=== PATIENT | male | born 1970 | race Caucasian/White ===

== ENCOUNTER 2023-08-07 16:05 | Emergency (ER) | payer OTHER ==
[2023-08-07] MEDS ORDERED: Lidocaine 1% w/Epinephrine 1:200K 30 ML VIAL ONE (17:58)
[2023-08-07] MEDS ORDERED: Boostrix 0.5 ML (Tdap) VIAL (>/=7 yrs of age) ONE (17:58)
== END 2023-08-07 19:12 | disposition home or self-care (01) ==
LOC: CSHERS 16:05
DX: S01.81XA Laceration without foreign body of other part of head, initial encounter (principal); W22.8XXA Striking against or struck by other objects, initial encounter; Z23 Encounter for immunization
CPT/HCPCS: 12011; 90471; 90715

== ENCOUNTER 2023-09-19 13:15 | Inpatient (IN) | payer BC ==
[2023-09-19] MEDS ORDERED: Aspirin 325 MG TAB ONE (13:48)
[2023-09-19 14:18] LABS: #Eosinphils 0.1 10x3/uL (0.0-0.5); #Neutrophils 6.4 10x3/uL (1.5-8.4); %Basophils 0.3 % (0.0-2.0); %Eosinophils 1.1 % (0.0-6.0); %Lymphocytes 23.6 % (18.0-47.0); %Monocytes 9.6 % (0.0-10.0); Hematocrit 39.3 % (38.8-50.0); Hemoglobin 12.9 g/dL (13.5-17.5); Mean Corpuscular HGB CONC 32.8 g/dL (32.0-36.0); Mean Corpuscular Hemoglobin 25.9 pg (27.0-33.0); Mean Corpuscular Volume 78.8 fl (81.2-95.1); Mean Platelet Volume 10.3 fl (7.4-10.4); Platelet Count 277 10x3/uL (150-450); RBC Distribution Width 15.9 % (11.5-14.5); Red Blood Cell (RBC) Count 4.99 10x6/uL (4.32-5.72); White Blood Cell (WBC) Count 9.9 10x3/uL (3.5-10.5)
[2023-09-19] MEDS ORDERED: Nitroglycerin 0.4 MG TAB 1 EACH ONE (14:33)
[2023-09-19 16:28] LABS: ALT (SGPT) 25 U/L (8-55); AST (SGOT) 23 U/L (5-34); Albumin 4.1 g/dL (3.5-5.0); Alkaline Phosphatase 95 U/L (40-110); Anion Gap 14 mmol/L (10-20); BUN (Urea Nitrogen) 14 mg/dL (8.4-25.7); Bilirubin, Total 0.5 mg/dL (0.2-1.2); Calc. Creatinine Clearance 0 mL/min (70-130); Calcium 9.1 mg/dL (7.8-10.44); Carbon Dioxide 21 mmol/L (22-29); Chloride 110 mmol/L (98-107); Estimated GFR 102; Globulin 2.8 g/dL (2.4-3.5); Glucose 100 mg/dL (70-105); Potassium 3.8 mmol/L (3.5-5.1); Protein, Total 6.9 g/dL (6.0-8.3); Sodium 141 mmol/L (136-145)
[2023-09-19 16:58] LABS: Troponin I 0.218 ng/mL (< 0.028)
[2023-09-19] MEDS ORDERED: Acetaminophen 325 MG TAB PO PRN (18:31)
[2023-09-19] MEDS ORDERED: Ondansetron PF 4 MG/2 ML Vial IVP PRN (18:31)
[2023-09-19] MEDS ORDERED: HYDROcodone/Acetaminophen 5/325 mg Tablet PO PRN (18:31)
[2023-09-19] MEDS ORDERED: Nitroglycerin 0.4 MG TAB (25 Tab Bottle) SL PRN (18:32)
[2023-09-19 18:43] LABS: Troponin I 0.204 ng/mL (< 0.028)
[2023-09-19 19:56] VITALS: BMI 35.9
[2023-09-19] MEDS: Famotidine 20 MG TAB PO SCH (21:15)
[2023-09-19 21:38] LABS: Troponin I 0.219 ng/mL (< 0.028)
[2023-09-19] MEDS: Zolpidem Tartrate 5 MG TAB PO PRN (22:12)
[2023-09-20 04:53] LABS: #Eosinphils 0.3 10x3/uL (0.0-0.5); #Monocytes 0.8 10x3/uL (0.0-1.1); #Neutrophils 2.8 10x3/uL (1.5-8.4); %Basophils 0.3 % (0.0-2.0); %Eosinophils 4.4 % (0.0-6.0); %Lymphocytes 41.5 % (18.0-47.0); %Neutrophils 41.5 % (40.0-75.0); Hematocrit 37.7 % (38.8-50.0); Hemoglobin 12.5 g/dL (13.5-17.5); Mean Corpuscular HGB CONC 33.2 g/dL (32.0-36.0); Mean Corpuscular Hemoglobin 26.2 pg (27.0-33.0); Mean Corpuscular Volume 78.9 fl (81.2-95.1); Mean Platelet Volume 10.2 fl (7.4-10.4); Platelet Count 252 10x3/uL (150-450); RBC Distribution Width 15.9 % (11.5-14.5); Red Blood Cell (RBC) Count 4.78 10x6/uL (4.32-5.72); White Blood Cell (WBC) Count 6.8 10x3/uL (3.5-10.5)
[2023-09-20 05:22] LABS: Anion Gap 13 mmol/L (10-20); BUN (Urea Nitrogen) 14 mg/dL (8.4-25.7); Calc. Creatinine Clearance 148 mL/min (70-130); Calcium 8.3 mg/dL (7.8-10.44); Carbon Dioxide 23 mmol/L (22-29); Cardiac Risk 3.5 (Less than 4.5); Chloride 108 mmol/L (98-107); Estimated GFR 105; Glucose 119 mg/dL (70-105); HDL Cholesterol 39 mg/dL (>60 Neg Risk); LDL Cholesterol, Calculated 78 mg/dL; Potassium 3.7 mmol/L (3.5-5.1); Sodium 140 mmol/L (136-145); Triglycerides 104 mg/dL (Less than 150)
[2023-09-20 05:24] LABS: Cholesterol 138 mg/dl (< 200 Desired)
[2023-09-20] MEDS: Aspirin Chewable 81 MG TAB PO SCH (07:40)
[2023-09-20] MEDS: Famotidine 20 MG TAB PO SCH ×2 (07:40→21:06)
[2023-09-20] MEDS ORDERED: FLU VACC QS2023-24(6MOS UP)/PF 60 MCG/0.5 ML SYRINGE IM ONE (09:00)
[2023-09-20] MEDS ORDERED: Losartan 25 MG TAB PO SCH (09:00)
[2023-09-20] MEDS ORDERED: Communication Order-Pharmacy FS SCH (09:30)
[2023-09-20] MEDS ORDERED: Iopamidol 300 61% 100 ML VIAL FS ONE (09:31)
[2023-09-20] MEDS ORDERED: Lidocaine 1% (PF) 30 ML VIAL ONE (09:38)
[2023-09-20] MEDS ORDERED: Nitroglycerin 50 MG/250 ML BOT 250 ML ONE (09:38)
[2023-09-20] MEDS ORDERED: Heparin 10,000 UNITS/ 10 ML VIAL ONE (09:38)
[2023-09-20] MEDS ORDERED: Adenosine 6 MG/2 ML VIAL ONE (09:39)
[2023-09-20] MEDS ORDERED: Lidocaine 4% PF 5 ML AMP ONE (09:40)
[2023-09-20] MEDS ORDERED: Verapamil 5 MG/2 ML VIAL ONE (09:40)
[2023-09-20] MEDS ORDERED: Midazolam HCl 2 mg/2 ml Vial ONE (09:50)
[2023-09-20] MEDS ORDERED: fentaNYL 50 mcg/mL 1 mL Vial ONE (09:50)
[2023-09-20] MEDS ORDERED: Acetaminophen/Codeine 30-300mg Tablet PO PRN ×2 (10:58)
[2023-09-20] MEDS ORDERED: Sodium Chloride 0.9% 200 ML IV PRN (10:58)
[2023-09-20] MEDS ORDERED: Nitroglycerin 0.4 MG TAB (25 Tab Bottle) SL PRN (10:58)
[2023-09-20] MEDS ORDERED: NIFEdipine XL 30 MG ER.TAB PO SCH (12:00)
[2023-09-20 16:08] LABS: Free T4 (Free Thyroxine) 1.31 ng/dL (0.70-1.48)
[2023-09-20] MEDS: Zolpidem Tartrate 5 MG TAB PO PRN (21:06)
[2023-09-21] MEDS: Aspirin Chewable 81 MG TAB PO SCH (08:09)
[2023-09-21] MEDS: Famotidine 20 MG TAB PO SCH (08:09)
[2023-09-21] MEDS ORDERED: NIFEdipine XL 30 MG ER.TAB PO SCH (09:00)
[2023-09-21 11:59] VITALS: BP 123/85; TEMP 97.7
== END 2023-09-21 14:16 | disposition home or self-care (01) | DRG 282 ==
LOC: SUATTDRO 13:15 → CSHERS 13:15 → CSHTELE 17:04
PROVIDERS: ADMIT Internal Medicine; ATTEND Hospitalist
PROC: 4A023N7 Measurement of Cardiac Sampling and Pressure, Left Heart, Percutaneous Approach (ICD-10-PCS; principal; 2023-09-20)
PROC: B2151ZZ Fluoroscopy of Left Heart using Low Osmolar Contrast (ICD-10-PCS; 2023-09-20)
PROC: B2111ZZ Fluoroscopy of Multiple Coronary Arteries using Low Osmolar Contrast (ICD-10-PCS; 2023-09-20)
DX: I21.4 Non-ST elevation (NSTEMI) myocardial infarction (principal); Z88.1 Allergy status to other antibiotic agents; Z88.8 Allergy status to other drugs, medicaments and biological substances; I10 Essential (primary) hypertension; M19.90 Unspecified osteoarthritis, unspecified site; Z98.890 Other specified postprocedural states; G47.33 Obstructive sleep apnea (adult) (pediatric); Z96.653 Presence of artificial knee joint, bilateral; Z82.49 Family history of ischemic heart disease and other diseases of the circulatory system; Z96.642 Presence of left artificial hip joint; Z79.82 Long term (current) use of aspirin; Z79.899 Other long term (current) drug therapy; I20.1 Angina pectoris with documented spasm; E05.90 Thyrotoxicosis, unspecified without thyrotoxic crisis or storm
CPT/HCPCS: 36415; 71045; 80048; 80053; 80061; 84439; 84443; 84481; 84484; 85025; 93005; 93010; 93306; 93458; 96372; 99152; 99153; 99285; C1760; C1769; C1887; C1894; J0153; J1644; J1650; J2001; J2250; J3010; Q9967